=== PATIENT | female | born 1995 | race Caucasian/White ===

== ENCOUNTER → 2017-01-10 | Outpatient (CLI) | payer MEDICAID | LOC: FIMAGING 14:07 | PROVIDERS: ATTEND Nurse Practitioner | DX: N91.1 Secondary amenorrhea (principal); N94.10 Unspecified dyspareunia ==

== ENCOUNTER 2017-05-27 14:11 | Emergency (ER) | payer MEDICAID ==
[2017-05-27 14:35] VITALS: TEMP 98.1
[2017-05-27 15:07] LABS: COLOR PALE YELLOW; LEUKOCYTE ESTERASE,URINE NEGATIVE (NEGATIVE); NITRITE,URINE NEGATIVE (NEGATIVE)
--- NOTE | 2017-05-27 16:01 | EDPHY ---
H & P Time Seen by Provider: 05/27/17 15:37 HPI/ROS: Chief complaint. Low back pain HPI. 21-year-old female woke this morning with right low back pain. It is worse with movement and sitting. No radiation down her leg. No leg weakness No bowel or bladder symptoms how ever she felt that maybe she saw some blood in her urine this morning. She had did a"massive" run/hike 4 days ago. She did yoga yesterday. She has no urinary frequency or dysuria. No fever. Slight nausea. IUD placed 1 and half months ago. Maybe she saw some blood in her urine this morning ROS Constitutional. no fever/chills, no weakness Eyes. no problems with vision ENT. no sore throat, no nasal drainage Cardiovascular. no chest pain Respiratory. no shortness of breath, no cough Abdominal. no abdominal pain, no nausea/vomiting, no diarrhea . no problems urinating though possible blood in urine this morning MS. no calf pain/swelling, no neck/back pain, no joint pain Skin. no rash Lymph. no swollen glands Neuro. no headache, no dizziness, no difficulty walking or with speech Past Medical/Surgical History: Healthy, IUD Social History: Single, nonsmoker, no alcohol Smoking Status: Never smoked Physical Exam: General Appearance: Mild distress vital signs are stable Eyes: Pupils equal and round no pallor or injection. ENT, Mouth: Mucous membranes are moist. Respiratory: There are no retractions, lungs are clear to auscultation. Cardiovascular: Regular rate and rhythm. Gastrointestinal: Abdomen is soft and nontender, no masses, bowel sounds normal. Neurological: Awake and alert, sensory and motor exams grossly normal. Straight leg raising is normal. Deep tendon reflexes are symmetrical. Great toe strength is normal. Leg sensation is normal Skin: Warm and dry, no rashes. Musculoskeletal: Neck is supple nontender. Tenderness in the right lower lumbar area but not over the spine Extremities symmetrical, full range of motion. Psychiatric: Patient is oriented X 3, there is no agitation. Constitutional: Initial Vital Signs Temperature (C) 36.7 C 05/27/17 14:31 Heart Rate 50 L 05/27/17 14:31 Respiratory Rate 18 05/27/17 14:31 Blood Pressure 100/55 L 05/27/17 14:31 O2 Sat (%) 97 05/27/17 14:31 O2 Delivery Mode Room Air Allergies/Adverse Reactions: No Known Allergies Allergy (Unverified 06/26/13 16:58) Home Medications: Medication Instructions Recorded Miscellaneous Medical Supply [NO 1 ea MISC AD 06/26/13 HOME MEDS] Medical Decision Making ED Course/Re-evaluation: Urinalysis is normal without evidence of blood or infection. Urine test is negative Re-evaluation 4:20 p.m.. The patient and I discussed laboratory evaluation, treatment plan including criteria for return importance of follow-up and further evaluation. She expresses understanding and agreement Differential Diagnosis: I think this is muscular low back pain. I considered pyelonephritis, kidney stone, as well - Data Points Laboratory Results: 05/27/17 05/27/17 05/27/17 15:50 15:38 14:50 Urine Color PALE YELLOW Urine Appearance CLEAR Urine pH 7.0 (5.0-7.5) Ur Specific [place] 1.012 (1.002-1.030) Urine Protein NEGATIVE (NEGATIVE) Urine Ketones NEGATIVE (NEGATIVE) Urine Blood NEGATIVE (NEGATIVE) Urine Nitrate NEGATIVE (NEGATIVE) Urine Bilirubin NEGATIVE (NEGATIVE) Urine Urobilinogen NEGATIVE EU EU (0.2-1.0) Ur Leukocyte Esterase NEGATIVE (NEGATIVE) Urine RBC Cancelled 1-3 /hpf /hpf (0-3) Urine WBC Cancelled 1-3 /hpf /hpf (0-3) Ur Epithelial Cells Cancelled NONE SEEN /lpf /lpf (NONE-1+) Ur Renal Epithelial Cell Cancelled Urine Crystals Cancelled Ammonium Urate Crystals Cancelled Calcium Carbonate Cryst Cancelled Calcium Phosphate Cryst Cancelled Calcium Oxalate Crystal Cancelled Leucine Crystals Cancelled Cystine Crystals Cancelled Uric Acid Crystals Cancelled Triple Phos Crystals Cancelled Sulfonamide Crystals Cancelled Cholesterol Crystals Cancelled Tyrosine Crystals Cancelled Bilirubin Crystals Cancelled Amorphous Sediment Cancelled Urine Bacteria Cancelled Epithelial Casts Cancelled Fatty Casts Cancelled Hyaline Casts Cancelled Granular Casts Cancelled Waxy Casts Cancelled Broad Casts Cancelled RBC Casts Cancelled WBC Casts Cancelled Urine Mucus Cancelled TRACE /lpf /lpf (NONE-1+) Urine Trichomonas Cancelled Urine Yeast Cancelled Urine Sperm Cancelled Ur Oval Fat Bodies Cancelled Ur Free Fat Droplets Cancelled Urine Glucose NEGATIVE (NEGATIVE) Urine Test NEGATIVE Urine Comment Cancelled Departure - Departure Disposition: Home, Routine, Self-Care Clinical Impression: Low back pain Qualifiers: Back pain laterality: right Sciatica presence: without sciatica Condition: Good Instructions: Low Back Strain (ED) Additional Instructions: Heat to your low back. Ibuprofen 4-600 mg every 6 hours for discomfort. Activity as tolerated. Return for worsening pain, leg weakness, bowel or bladder symptoms. Recheck in 2 days for continuing symptoms Referrals: NONE *PRIMARY CARE P,. [Primary Care Provider] - As per Instructions Manuel Overton MD [Medical Doctor] - 2-3 days, if not improved
[2017-05-27 16:18] LABS: MUCUS TRACE /lpf (NONE-1+)
[2017-05-27 16:33] VITALS: BP 106/52; PULSE 16; RESP 48; O2SAT 99
== END 2017-05-27 16:30 | disposition home or self-care (01) ==
DX: M54.5 Low back pain (principal)